=== PATIENT | female | born 1975 | race Caucasian/White ===

== ENCOUNTER → 2016-10-17 | Outpatient (CLI) | payer BC ==
[~2016-10-17] MED LIST: CEPHALEXIN500 M1 PO; PERCOCET 325 MG1 TA2 PO; ZOFRAN 4MG T4 MG/TAB PO; ZOLOFT 25MG25 MG
== END ==
LOC: MC.RAD 10-13 09:40
DX: Z12.31 Encounter for screening mammogram for malignant neoplasm of breast (principal)

== ENCOUNTER → 2017-10-30 | Outpatient (CLI) | payer BC | LOC: MC.RAD 08:00 | DX: Z12.31 Encounter for screening mammogram for malignant neoplasm of breast (principal) ==

== ENCOUNTER → 2019-01-10 | Outpatient (CLI) | payer BC | LOC: MC.RAD 08:00 | DX: Z12.31 Encounter for screening mammogram for malignant neoplasm of breast (principal); Z00.00 Encounter for general adult medical examination without abnormal findings ==

== ENCOUNTER → 2020-08-17 | Outpatient (CLI) | payer BC | LOC: MC.RAD 14:30 | DX: Z12.31 Encounter for screening mammogram for malignant neoplasm of breast (principal); Z00.00 Encounter for general adult medical examination without abnormal findings ==

== ENCOUNTER → 2021-09-09 | Outpatient (CLI) | payer BC | LOC: MC.RAD 09:00 | DX: Z12.31 Encounter for screening mammogram for malignant neoplasm of breast (principal) ==

== ENCOUNTER 2022-02-12 04:39 | Inpatient (IN) | payer BC ==
[~2022-02-12] VITALS: Ht 167.6 cm; Wt 62.7 kg
[2022-02-12 05:05] LABS: BASO % 0.5 % (0.0-2.0); EOS # 0.1 K/mm3 (0.0-0.7); EOS % 1.9 % (0.0-4.0); GRAN # 5.6 K/mm3 (1.4-6.5); GRAN % 74.2 % (42.2-75.2); HEMOGLOBIN 11.1 g/dl (12.5-16.0); LYMPH # 1.2 K/mm3 (1.2-3.4); LYMPH % 15.3 % (20.0-51.0); MEAN CELL VOLUME 85 fl (80.0-100.0); MEAN CORPUSCULAR HEMOGLOBIN 28 pg (27-31); MEAN CORPUSCULAR HGB CONC 33 g/dl (33.0-37.0); MEAN PLATELET VOLUME 9.8 fl (7.4-10.4); MONO # 0.6 K/mm3 (0.1-0.6); MONO % 7.8 % (1.7-9.3); PLATELET COUNT 297 K/mm3 (130-400); RED BLOOD COUNT 3.95 M/mm3 (4.10-5.30); REDCELL DISTRIBUTION WIDTH-CV 13.5 % (11.5-14.5)
[2022-02-12] MEDS ORDERED: ZOLOFT 100MG100 MG PO (05:13)
[2022-02-12] MEDS ORDERED: ALBUTEROL0.83 MG/ML IH (05:14)
[2022-02-12 05:18] LABS: ARTERIAL BLD GAS O2 SATURATION 92.9 % (92-100); ARTERIAL BLD GAS TCO2 CT 24.5; ARTERIAL BLOOD GAS BASE EXCESS -0.2 (-2-2); ARTERIAL BLOOD GAS HCO3 23.5 meq/L (22-26); ARTERIAL BLOOD GAS PCO2 34.8 mmHg (35-45); ARTERIAL BLOOD GAS PO2 64.9 mmHg (80-100); ARTERIAL BLOOD GAS pH 7.45 (7.35-7.45)
[2022-02-12 05:20] LABS: ALBUMIN 3.6 gm/dL (3.5-5.0); BILIRUBIN,TOTAL 0.3 mg/dL (0.2-1.2); C-REACTIVE PROTEIN 8.1 mg/dL (0.00-0.50); CALCIUM 8.6 mg/dL (8.4-10.2); CREATININE, serum 0.78 mg/dL (0.57-1.11); POTASSIUM 3.6 mmol/L (3.5-4.5); TOTAL PROTEIN 7.3 gm/dL (6.2-8.1)
[2022-02-12 05:25] LABS: TROPONIN-I 0.01 ng/mL (0.00-0.033)
[2022-02-12 05:26] LABS: ERYTHROCYTE SEDIMENTATION RATE 14 mm/hr (0-20); HEMATOCRIT 33.5 % (37.0-47.0)
--- NOTE | 2022-02-12 08:37 | NUR ---
ADMISSION FROM ER AT 825AM. PATIENT ALERT AND ORIENT X 4. INDEPENDENT ABLE TO WALK AROUND WITH O2 ON. PATIENT ON A TELE TO MONITOR HEART. PATEINT STATED THAT WHE SHE TAKE A DEEP BREATHIG, SHE HAS INCREASE PAIN. PATIENT STATED WITH THE ALBUTEROL SHE STILL HAVE PAIN. PATINT LUNG CLEAR AT THIS TIME. PATIENT DOES HAVE A COUGH BUT NON PRODUCTIVE. BOWEL SOUND ACTIVE WITH A BOWEL MOVMEENT YESTERDAY(HARD,MED)NO EDEMA NOTED. 18 G IV ON LEFT WRIST. PATIENT STATED THAT SHE HAD COVID LAST YEAR AND POSSIBLE COVID AGAIN THIS PAST OCTOBER. BREATHING STARTED ABOUT 1 MONTH BUT GETTING WORST LAST WEEK. JUST RECEIVED BREATHING TREATMENT BUT THAT DID NOT HELP SO PT WENT TO THE ER FOR ASSISTANCE.
[2022-02-12 09:14] VITALS: BP 124/59; PULSE 85; TEMP 97.7
[2022-02-12 11:08] VITALS: BP 117/64; PULSE 85; TEMP 97.8
--- NOTE | 2022-02-12 12:25 | NUR ---
Position Classification Manager rounds: Position Classification Manager visit attempted. Patient had a visitor. Patient thanked Position Classification Manager for the offer.
--- NOTE | 2022-02-12 13:00 | NUR ---
Pt lives at home with , Pepito @ [phone]. Pt is independent on all ADLS and does not use any DME. PCP is Leni Jonas and gets medications from [facility] with no troubles. NO DPOA-HC and not interested at this time. Pt is on o2 in the room. No other needs at this time. Sw to await for further recommendations and follow up. DC: Home.
[2022-02-12 15:40] VITALS: BP 105/64; PULSE 107; TEMP 98.1
--- NOTE | 2022-02-12 16:06 | NUR ---
RT CAME TO EXPLAIN ABOUT THE I.S. PATIENT ABLE TO BREATH IN UP TO 1000.
--- NOTE | 2022-02-12 18:05 | NUR ---
Care resumed from Helnea. Patient awake & alert, visitors at bedside. Patient had CT scan completed. She tolerated her dinner tray. PO predisone given & we reviewed side effects of steroids. Patient deneis needs at this time
[2022-02-12 20:33] VITALS: BP 121/61; PULSE 94; TEMP 97.9
[2022-02-13] VITALS (7 sets, daily range): BP systolic 114–123; BP diastolic 59–76; PULSE 72–97; TEMP 98–99.2
--- NOTE | 2022-02-13 06:16 | NUR ---
PATIENT RESTED QUIETLY THIS SHIFT. PATIENT TITRATED TO 1L/NC PER RT AND TOLERATED WELL. PATIENT RECEIVED NO PRN MEDICATIONS.
--- NOTE | 2022-02-13 08:00 | NUR ---
Patient sitting up in bed, A&Ox4. VSS 1L NC O2, dyspnea when laying flat. Denies pain and discomfort. IV CDI. Independent in the room. Call light within reach
--- NOTE | 2022-02-13 13:18 | NUR ---
Salt Cutter rounds: Patient politely declined offer of Salt Cutter visit and thanked Salt Cutter for offering.
--- NOTE | 2022-02-13 18:03 | NUR ---
Patient had an unevemtful day. A&Ox4. VSS 1L NC O2 as needed. IV CDI. Denies pain and discomfort. Patient walked the hallway and tolerated well. No further needs expressed. Call light within reach
--- NOTE | 2022-02-13 20:00 | NUR ---
Pt sitting up in bed, watching TV. A&O x4. VSS. Shift assessment completed. Pt requesting information about her procedures for the next day. Pt also wants to stay with HOB elevated and try to sleep w/o O2. Pt gets encouraged to use her O2 whenever she feels ready. LFA INT CDI. Tele on. All medication administered per Emar. Call light is within reach.
[2022-02-14 03:33] VITALS: BP 121/66; PULSE 73; TEMP 97.9
--- NOTE | 2022-02-14 05:41 | NUR ---
Pt denies having any SOB, dizziness, pain or discomfort of any type. Pt slept through the night without any events. Call light is within reach.
--- NOTE | 2022-02-14 08:00 | NUR ---
Patient is resting in bed, alert and oriented x 4. VSS. Denies any SOB at this time. Assessment completed, no other needs at this time. Call light within reach.
[2022-02-14] MEDS ORDERED: PREDNISONE10 MG PO ×3 (08:18→12:19)
[2022-02-14] MEDS ORDERED: DOXYCYCLINE 10100 MG PO (08:19)
[2022-02-14] MEDS ORDERED: PROAIR HFA0.09 MG/AC IH (08:40)
[2022-02-14] MEDS ORDERED: RT ADVAIR 128 DISKUS IH (08:40)
[2022-02-14 08:41] VITALS: BP 118/57; PULSE 95; TEMP 98.3
--- NOTE | 2022-02-14 09:33 | NUR ---
PT DOES NOT REQUIRE 02 WITH AMBULATION, NO SOB NOTED, NO RESP COMPLAINTS.
[2022-02-14 12:00] VITALS: BP 115/57; PULSE 84; TEMP 98.6
[2022-02-14] MEDS ORDERED: PREDNISONE 5MG5 MG PO (12:21)
--- NOTE | 2022-02-14 13:06 | NUR ---
Patient to discharge home today. [employer] reviewed RT notes and patient will not require home oxygen.
--- NOTE | 2022-02-14 15:57 | NUR ---
Patient was provided with discharge information, all questeions answered. IV ACCESS and telemetry were discontinued. Pt was accompanied by PCT Kathy to the ER entrance.
[2022-02-14 17:46] LABS: C-ANCA 29 U/mL (0-99)
[2022-02-15 08:32] LABS: ANA SCREEN with REFLEX Negative (Negative)
[2022-02-15 14:12] LABS: ANGIOTENSIN CONVERTING ENZYME 31 U/L (16 - 85)
== END 2022-02-14 15:58 | disposition home or self-care (01) | DRG 189 ==
LOC: COL.ER 04:39 → MEDICAL 06:23
PROVIDERS: Emergency Medicine; Internal Medicine Pulmonary Disease; ADMIT Internal Medicine
DX: J96.01 Acute respiratory failure with hypoxia (principal); J98.11 Atelectasis; J84.9 Interstitial pulmonary disease, unspecified; F10.90 Alcohol use, unspecified, uncomplicated; F41.9 Anxiety disorder, unspecified; M79.10 Myalgia, unspecified site; I07.1 Rheumatic tricuspid insufficiency; Z88.2 Allergy status to sulfonamides
CPT/HCPCS: OP; A9284; J1885; J7030; J7512

== ENCOUNTER → 2022-08-19 | Outpatient (CLI) | payer BC ==
[~2022-08-19] MED LIST changes: +ALBUTEROL0.83 MG/ML IH; +DOXYCYCLINE 10100 MG PO; +PREDNISONE 5MG5 MG PO; +PREDNISONE10 MG PO; +PROAIR HFA0.09 MG/AC IH; +RT ADVAIR 128 DISKUS IH; +ZOLOFT 100MG100 MG PO
== END ==
LOC: COL.VAS 12:11
DX: I27.20 Pulmonary hypertension, unspecified (principal)